=== PATIENT | female | born 1990 | race African-American/Black ===

== ENCOUNTER 2018-10-19 14:13 | Emergency (ER) | payer MEDICAID ==
[~2018-10-19] VITALS: Ht 167.6 cm; Wt 80.0 kg
[2018-10-19] MEDS ORDERED: SODIUM CHLORIDE 0.9% 1,000 ML IV ONE (15:04)
[2018-10-19 15:40] LABS: BASOPHILS % 0.4 % (0.0-2.0); EOSINOPHILS % 0.4 % (0.0-5.0); HEMATOCRIT. 42.2 % (36.0-48.0); HEMOGLOBIN. 14.1 g/dL (12.0-16.0); LYMPHOCYTES % 15.5 % (20.0-50.0); MEAN CORPUSCULAR HEMOGLOBIN 32.1 pg (28.0-32.0); MEAN CORPUSCULAR VOLUME 96.1 fL (81.0-99.0); MEAN PLATELET VOLUME 9.3 fl (7.4-10.4); MONOCYTES % 5.9 % (2.0-8.0); NEUTROPHILS % 77.8 % (40.0-76.0); PLATELET 191 x1000/uL (130-400); RED BLOOD CELL COUNT 4.39 mill/uL (4.2-5.4); RED CELL DISTRIBUTION WIDTH 13.6 % (11.6-14.6)
[2018-10-19 15:45] LABS: CHLORIDE 103 mEq/L (98-107)
[2018-10-19 15:59] LABS: HCG SCREEN NEGATIVE
[2018-10-19 17:42] VITALS: BP 121/75
== END 2018-10-19 17:53 | disposition home or self-care (01) ==
LOC: ER 14:13
DX: R07.9 Chest pain, unspecified (principal); R79.89 Other specified abnormal findings of blood chemistry; F41.9 Anxiety disorder, unspecified; Z88.3 Allergy status to other anti-infective agents; F17.200 Nicotine dependence, unspecified, uncomplicated
CPT/HCPCS: 36415; 71045; 80053; 84703; 85025; 93005; 99284; J7030

== ENCOUNTER 2019-01-26 12:39 | Emergency (ER) | payer MEDICAID ==
[~2019-01-26] VITALS: Ht 170.2 cm; Wt 83.0 kg
[2019-01-26] MEDS ORDERED: SODIUM CHLORIDE 0.9% 1,000 ML IV ONE (14:53)
[2019-01-26 15:42] LABS: CLARITY URINE CLOUDY (CLEAR); COLOR URINE YELLOW (YELLOW); KETONES URINE TRACE (NEGATIVE); LEUKOCYTE ESTERASE URINE NEGATIVE (NEGATIVE); NITRITE URINE NEGATIVE (NEGATIVE); OCCULT BLOOD URINE NEGATIVE (NEGATIVE); PROTEIN URINE NEGATIVE (NEGATIVE); SPECIFIC GRAVITY URINE 1.025 (1.005-1.030)
[2019-01-26 15:53] LABS: CHLORIDE 102 mEq/L (98-107)
[2019-01-26 15:59] LABS: BASOPHILS % 0.6 % (0.0-2.0); EOSINOPHILS % 0.1 % (0.0-5.0); HEMOGLOBIN. 13.8 g/dL (12.0-16.0); LYMPHOCYTES % 9.7 % (20.0-50.0); MEAN CORPUSCULAR HEMOGLOBIN 32.3 pg (28.0-32.0); MEAN CORPUSCULAR VOLUME 96.3 fL (81.0-99.0); MEAN PLATELET VOLUME 9.5 fl (7.4-10.4); MONOCYTES % 6.1 % (2.0-8.0); NEUTROPHILS % 83.5 % (40.0-76.0); PLATELET 177 x1000/uL (130-400); RED BLOOD CELL COUNT 4.26 mill/uL (4.2-5.4); RED CELL DISTRIBUTION WIDTH 13.2 % (11.6-14.6)
[2019-01-26] MEDS ORDERED: KETOROLAC 30MG/ML VIAL IV ONE (16:30)
[2019-01-26 19:57] VITALS: BP 143/67
== END 2019-01-26 19:50 | disposition home or self-care (01) ==
LOC: ER 12:39
DX: N93.8 Other specified abnormal uterine and vaginal bleeding (principal); R10.2 Pelvic and perineal pain; F41.9 Anxiety disorder, unspecified; F17.290 Nicotine dependence, other tobacco product, uncomplicated; R42 Dizziness and giddiness
CPT/HCPCS: 36415; 80053; 81003; 81025; 83690; 85025; 96361; 96374; 99283; 99406; J1885; J7030

== ENCOUNTER 2019-07-29 10:18 | Emergency (ER) | payer MEDICAID ==
[~2019-07-29] VITALS: Ht 170.2 cm; Wt 86.0 kg
[2019-07-29] MEDS ORDERED: HYDROCODONE/ACETAMINOPHEN 5/325MG TABLET PO ONE (12:45)
[2019-07-29 16:37] VITALS: BP 128/84
== END 2019-07-29 16:39 | disposition home or self-care (01) ==
LOC: ER 10:18
DX: M25.511 Pain in right shoulder (principal); Z88.1 Allergy status to other antibiotic agents
CPT/HCPCS: 73030; 81025; 99283; A4565

== ENCOUNTER 2022-02-10 21:07 | Emergency (ER) | payer MEDICAID, OTHER ==
[~2022-02-10] VITALS: Ht 170.2 cm; Wt 95.0 kg
[2022-02-10] MEDS ORDERED: IBUPROFEN 600MG TABLET PO ONE (22:00)
[2022-02-11] MEDS ORDERED: ACETAMINOPHEN 325MG TABLET PO STA (05:26)
[2022-02-11 07:18] LABS: CLARITY URINE CLOUDY (CLEAR); COLOR URINE YELLOW (YELLOW); KETONES URINE 2+ (NEGATIVE); LEUKOCYTE ESTERASE URINE NEGATIVE (NEGATIVE); NITRITE URINE NEGATIVE (NEGATIVE); OCCULT BLOOD URINE TRACE (NEGATIVE); PROTEIN URINE TRACE (NEGATIVE)
[2022-02-11] MEDS ORDERED: TOPUD MT (07:42)
[2022-02-11] MEDS ORDERED: IBUP-2029 MT (07:42)
[2022-02-11 08:00] VITALS: BP 131/76
== END 2022-02-11 08:15 | disposition home or self-care (01) ==
LOC: ER 21:07
DX: U07.1 COVID-19 (principal); R05.9 Cough, unspecified; F41.9 Anxiety disorder, unspecified; Z88.3 Allergy status to other anti-infective agents
CPT/HCPCS: 71045; 81003; 87426; 87804; 99284; C9803

== ENCOUNTER 2023-07-06 19:23 | Emergency (ER) | payer OTHER ==
[~2023-07-06] VITALS: Ht 170.2 cm; Wt 89.0 kg
[~2023-07-06 19:23] MED LIST: IBUP-2029 MT; TOPUD MT
[2023-07-06 19:33] VITALS: O2SAT 100
[2023-07-06 20:24] LABS: CLARITY URINE CLEAR (CLEAR); COLOR URINE YELLOW (YELLOW)
[2023-07-06 20:25] LABS: GLUCOSE URINE NEGATIVE (NEGATIVE); KETONES URINE 1+ (NEGATIVE); LEUKOCYTE ESTERASE URINE NEGATIVE (NEGATIVE); NITRITE URINE NEGATIVE (NEGATIVE); OCCULT BLOOD URINE 2+ (NEGATIVE); PROTEIN URINE NEGATIVE (NEGATIVE); UROBILINOGEN URINE 0.2 E.U./dL (0.2-1.0)
[2023-07-06 20:35] LABS: BACTERIA URINE 1+; SQUAMOUS EPITHELIAL CELL URINE 1+ /lpf (RARE/1+); WBC URINE 0-2 /hpf (0-2)
[2023-07-06 21:40] VITALS: BP 132/78; PULSE 75; RESP 18; TEMP 97.5
== END 2023-07-06 21:42 | disposition home or self-care (01) ==
LOC: ER 19:23
DX: N76.0 Acute vaginitis (principal); F41.9 Anxiety disorder, unspecified
CPT/HCPCS: 81003; 81025; 99283

== ENCOUNTER 2025-02-04 11:11 | Emergency (ER) | payer MEDICAID, OTHER ==
[~2025-02-04] VITALS: Ht 170.2 cm; Wt 82.0 kg
[2025-02-04 11:20] VITALS: O2SAT 99
[2025-02-04 12:18] LABS: BASOPHILS % 0.5 % (0.0-2.0); EOSINOPHILS % 0.4 % (0.0-5.0); HEMATOCRIT. 39.6 % (36.0-48.0); HEMOGLOBIN. 12.9 g/dL (12.0-16.0); LYMPHOCYTES % 19.4 % (20.0-50.0); MEAN PLATELET VOLUME 8.9 fl (7.4-10.4); MONOCYTES % 5.5 % (2.0-8.0); NEUTROPHILS % 74.2 % (40.0-76.0); PLATELET 230 x1000/uL (130-400); RED BLOOD CELL COUNT 3.98 mill/uL (4.2-5.4); RED CELL DISTRIBUTION WIDTH 13.9 % (11.6-14.6)
[2025-02-04 12:28] LABS: HCG SCREEN NEGATIVE
[2025-02-04 12:32] LABS: CREATININE 0.7 mg/dL (0.6-1.0); UREA NITROGEN BLOOD 8 mg/dL (9-23)
[2025-02-04 13:00] VITALS: BP 139/88; PULSE 102; RESP 18; TEMP 36.7; O2SAT 99
== END 2025-02-04 14:01 | disposition home or self-care (01) ==
LOC: ER 11:11
DX: N92.0 Excessive and frequent menstruation with regular cycle (principal); F41.9 Anxiety disorder, unspecified; Z79.899 Other long term (current) drug therapy; Z86.018 Personal history of other benign neoplasm; Z88.1 Allergy status to other antibiotic agents
CPT/HCPCS: 36415; 80048; 84703; 85025; 86850; 86900; 99283